=== PATIENT | female | born 1970 | race Caucasian/White ===

== ENCOUNTER 2016-06-14 08:06 | Inpatient (IN) | payer OTHER ==
[~2016-06-14] VITALS: Ht 167.6 cm; Wt 98.1 kg
[2016-06-14 08:06] VITALS: BP 112/47; PULSE 103; RESP 19; TEMP 97.2; O2SAT 99
[2016-06-14] MEDS ORDERED: MORPHINE 4 MG/ML INJ. SYRINGE IVP ONE (08:15)
[2016-06-14] MEDS ORDERED: ONDANSETRON HCL 4 MG/2 ML VIAL IVP ONE (08:15)
[2016-06-14 08:52] LABS: BASOPHILS % (AUTO) 0.5 % (0.0-2.0); EOSINOPHILS # (AUTO) 0.2 K/uL (0.0-0.4); EOSINOPHILS % (AUTO) 3.4 % (0.0-4.0); HEMATOCRIT 32.6 % (36-48); HEMOGLOBIN 11.4 g/dL (12.0-16.0); LYMPHOCYTES # (AUTO) 2.4 K/uL (1.0-5.5); LYMPHOCYTES % (AUTO) 49.1 % (20.5-51.5); MEAN CORPUSCULAR HEMOGLOBIN 32 pg (27-31); MEAN CORPUSCULAR HGB CONC 35 % (32-36); MEAN CORPUSCULAR VOLUME 91 fL (79.0-98.0); MONOCYTES # (AUTO) 0.5 K/uL (0.0-1.0); MONOCYTES % (AUTO) 10.9 % (1.7-9.3); NEUTROPHILS # (AUTO) 1.7 K/uL (1.8-7.7); NEUTROPHILS % (AUTO) 36.1 % (40.0-70.0); PLATELET COUNT (AUTO) 191 K/uL (130-430); RED BLOOD CELL COUNT(AUTO) 3.57 MIL/uL (4.2-6.2); RED CELL DISTRIBUTION WIDTH 13.7 % (9.0-15.0); WHITE BLOOD COUNT (AUTO) 4.8 K/uL (4.8-10.8)
[2016-06-14 08:59] LABS: POTASSIUM 3.9 mmol/L (3.5-5.1)
[2016-06-14 09:00] LABS: CALCIUM 8.2 mg/dL (8.4-11.0); CREATININE 0.72 mg/dL (0.55-1.30)
[2016-06-14 09:02] LABS: INR 0.9 (0.8-1.2); PROTHROMBIN TIME 10.1 SECS (9.5-12.5)
[2016-06-14 09:04] LABS: ALBUMIN 3.6 g/dL (3.4-4.8); TOTAL BILIRUBIN 0.1 mg/dL (0.0-1.0); TOTAL PROTEIN, SERUM 7.5 g/dL (6.4-8.3)
[2016-06-14 09:09] LABS: BARBITURATE, URINE NEGATIVE (NEG <=200); BENZODIAZEPINE, URINE NEGATIVE (NEG <=150); CANNABINOID, URINE NEGATIVE (NEG <=50); COCAINE, URINE NEGATIVE (NEG <=150); METHAMPHETAMINES SCREEN,URINE NEGATIVE (NEG <=500); OPIATE, URINE NEGATIVE (NEG <=100); PHENCYCLIDINE SCREEN,URINE NEGATIVE (NEG <=25); UR TRICYCLIC ANTIDEPRESSANTS NEGATIVE (NEG <=300); URINE AMPHETAMINE NEGATIVE (NEG <=500); URINE METHADONE NEGATIVE (NEG <=200); URINE OXYCODONE SCREEN NEGATIVE (NEG <=100); URINE PROPOXYPHENE SCREEN NEGATIVE (NEG <=300)
[2016-06-14] MEDS ORDERED: PANTOPRAZOLE SODIUM 40 MG/VIAL (PROTONIX) IVP ONE (09:30)
[2016-06-14] MEDS ORDERED: VITD2000 PO (09:42)
[2016-06-14] MEDS ORDERED: LEVO150T8 PO (09:42)
[2016-06-14] MEDS ORDERED: NAPR-227 PO (09:42)
[2016-06-14] MEDS ORDERED: FERR-57 PO (09:42)
[2016-06-14] MEDS ORDERED: MAGNESIUM SULFATE 50 ML IV PRN (10:30)
[2016-06-14] MEDS ORDERED: LORazepam 2 MG/ML VIAL IVP PRN (10:30)
[2016-06-14] MEDS ORDERED: METOCLOPRAMIDE HCL 10 MG/2 ML VIAL IVP ONE (11:15)
[2016-06-14] MEDS ORDERED: METOCLOPRAMIDE HCL 10 MG/2 ML VIAL ONE (11:28)
[2016-06-14] MEDS ORDERED: MIDAZOLAM HCL 5 MG/5 ML VIAL ONE ×2 (11:36→11:37)
[2016-06-14] MEDS ORDERED: MEPERIDINE HCL/PF 100 MG/ML AMP ONE ×2 (11:37→11:38)
[2016-06-14 12:00] VITALS: BP 117/76; PULSE 77; RESP 16; TEMP 97.2; O2SAT 97
[2016-06-14 12:01] LABS: HCG,QUAL RESULT NEGATIVE (NEGATIVE)
[2016-06-14] MEDS: MORPHINE 2 MG/ML INJ. SYRINGE IVP PRN ×3 (12:47→21:07)
[2016-06-14] MEDS: D5NS 1,000 ML IV SCH ×2 (12:50→20:00)
[2016-06-14] MEDS: METOCLOPRAMIDE HCL 10 MG/2 ML VIAL IVP SCH ×2 (14:00→21:06)
[2016-06-14 16:00] VITALS: BP 121/73; PULSE 69; RESP 16; TEMP 97.3; O2SAT 97
[2016-06-14] MEDS: ONDANSETRON HCL 4 MG/2 ML VIAL IVP PRN (19:38)
[2016-06-14 19:57] VITALS: BP 133/87; PULSE 81; RESP 17; TEMP 99.1; O2SAT 98
[2016-06-14] MEDS: ZOLPIDEM TARTRATE 5 MG TABLET PO PRN (23:22)
[2016-06-15 00:59] VITALS: BP 110/68; PULSE 69; RESP 20; TEMP 97.8; O2SAT 97
[2016-06-15 04:00] VITALS: BP 116/62; PULSE 68; RESP 18; TEMP 97.3; O2SAT 96
[2016-06-15] MEDS: D5NS 1,000 ML IV SCH ×2 (06:00→18:19)
[2016-06-15] MEDS: METOCLOPRAMIDE HCL 10 MG/2 ML VIAL IVP SCH ×3 (06:47→21:33)
[2016-06-15 07:03] LABS: CREATININE 0.67 mg/dL (0.55-1.30); POTASSIUM 3.5 mmol/L (3.5-5.1)
[2016-06-15 07:13] LABS: TOTAL BILIRUBIN 0.4 mg/dL (0.0-1.0); TOTAL PROTEIN, SERUM 6.5 g/dL (6.4-8.3)
[2016-06-15 07:50] VITALS: BP 108/70; PULSE 69; RESP 16; TEMP 97; O2SAT 99
[2016-06-15 08:29] LABS: BASOPHILS % (AUTO) 0.4 % (0.0-2.0); EOSINOPHILS # (AUTO) 0.2 K/uL (0.0-0.4); HEMOGLOBIN 11.1 g/dL (12.0-16.0); LYMPHOCYTES # (AUTO) 1.5 K/uL (1.0-5.5); LYMPHOCYTES % (AUTO) 28.8 % (20.5-51.5); MEAN CORPUSCULAR HEMOGLOBIN 31 pg (27-31); MEAN CORPUSCULAR HGB CONC 34 % (32-36); MONOCYTES # (AUTO) 0.4 K/uL (0.0-1.0); MONOCYTES % (AUTO) 8.6 % (1.7-9.3); NEUTROPHILS # (AUTO) 3.1 K/uL (1.8-7.7); NEUTROPHILS % (AUTO) 59.2 % (40.0-70.0); PLATELET COUNT (AUTO) 174 K/uL (130-430); RED BLOOD CELL COUNT(AUTO) 3.56 MIL/uL (4.2-6.2); RED CELL DISTRIBUTION WIDTH 13.9 % (9.0-15.0); WHITE BLOOD COUNT (AUTO) 5.2 K/uL (4.8-10.8)
[2016-06-15] MEDS: MORPHINE 2 MG/ML INJ. SYRINGE IVP PRN ×3 (08:39→18:18)
[2016-06-15] MEDS: PANTOPRAZOLE SODIUM 40 MG/VIAL (PROTONIX) IVP SCH (08:40)
[2016-06-15 08:46] LABS: MEAN CORPUSCULAR VOLUME 93 fL (79.0-98.0)
[2016-06-15] MEDS: ONDANSETRON HCL 4 MG/2 ML VIAL IVP PRN (11:27)
[2016-06-15 12:00] VITALS: BP 108/58; PULSE 70; RESP 22; TEMP 99; O2SAT 95
[2016-06-15 16:00] VITALS: BP 96/56; PULSE 76; RESP 21; TEMP 99.6; O2SAT 97
[2016-06-15 19:05] VITALS: BP 107/63; PULSE 69; RESP 20; TEMP 99; O2SAT 98
[2016-06-15] MEDS: AMITRIPTYLINE HCL 10 MG TABLET (ELAVIL) PO SCH (21:33)
[2016-06-15] MEDS: ZOLPIDEM TARTRATE 5 MG TABLET PO PRN (21:33)
[2016-06-16] VITALS: BP 110/68; PULSE 70; RESP 18; TEMP 98.9; O2SAT 93
[2016-06-16] MEDS: D5NS 1,000 ML IV SCH ×2 (01:24→11:27)
[2016-06-16] MEDS: MORPHINE 2 MG/ML INJ. SYRINGE IVP PRN ×2 (01:25→09:16)
[2016-06-16 04:00] VITALS: BP 94/52; PULSE 72; RESP 17; TEMP 97; O2SAT 95
[2016-06-16] MEDS: METOCLOPRAMIDE HCL 10 MG/2 ML VIAL IVP SCH (05:33)
[2016-06-16 06:48] LABS: BASOPHILS % (AUTO) 0.5 % (0.0-2.0); EOSINOPHILS # (AUTO) 0.1 K/uL (0.0-0.4); EOSINOPHILS % (AUTO) 3.1 % (0.0-4.0); HEMATOCRIT 31.8 % (36-48); HEMOGLOBIN 10.6 g/dL (12.0-16.0); LYMPHOCYTES # (AUTO) 1.9 K/uL (1.0-5.5); LYMPHOCYTES % (AUTO) 43.5 % (20.5-51.5); MEAN CORPUSCULAR HEMOGLOBIN 31 pg (27-31); MEAN CORPUSCULAR HGB CONC 34 % (32-36); MEAN CORPUSCULAR VOLUME 93 fL (79.0-98.0); MONOCYTES # (AUTO) 0.5 K/uL (0.0-1.0); NEUTROPHILS # (AUTO) 1.9 K/uL (1.8-7.7); NEUTROPHILS % (AUTO) 41.9 % (40.0-70.0); PLATELET COUNT (AUTO) 168 K/uL (130-430); RED BLOOD CELL COUNT(AUTO) 3.42 MIL/uL (4.2-6.2); RED CELL DISTRIBUTION WIDTH 13.7 % (9.0-15.0); WHITE BLOOD COUNT (AUTO) 4.4 K/uL (4.8-10.8)
[2016-06-16 07:18] LABS: CALCIUM 7.7 mg/dL (8.4-11.0); CREATININE 0.61 mg/dL (0.55-1.30); POTASSIUM 3.4 mmol/L (3.5-5.1)
[2016-06-16 08:00] VITALS: BP 104/56; PULSE 78; RESP 17; TEMP 98; O2SAT 98
[2016-06-16] MEDS: PANTOPRAZOLE SODIUM 40 MG/VIAL (PROTONIX) IVP SCH (09:16)
[2016-06-16] MEDS: AMITRIPTYLINE HCL 10 MG TABLET (ELAVIL) PO SCH (09:16)
[2016-06-16] MEDS ORDERED: PRO40 PO (11:23)
[2016-06-16 12:13] VITALS: BP 94/47; PULSE 62; RESP 16; TEMP 98; O2SAT 97
[2016-06-16 13:47] VITALS: BP 98/56; PULSE 62; RESP 18; TEMP 98; O2SAT 97
== END 2016-06-16 14:30 | disposition home or self-care (01) | DRG 241 ==
LOC: SED 08:06 → SMU 09:58
PROVIDERS: ADMIT General Practice; ATTEND General Practice
PROC: 0DB98ZX Excision of Duodenum, Via Natural or Artificial Opening Endoscopic, Diagnostic (ICD-10-PCS; 2016-06-14)
PROC: 0DB78ZX Excision of Stomach, Pylorus, Via Natural or Artificial Opening Endoscopic, Diagnostic (ICD-10-PCS; principal; 2016-06-14 11:30)
DX: K29.71 Gastritis, unspecified, with bleeding (principal); E44.0 Moderate protein-calorie malnutrition; E03.9 Hypothyroidism, unspecified; K29.81 Duodenitis with bleeding; M47.9 Spondylosis, unspecified; E87.6 Hypokalemia; D64.9 Anemia, unspecified; Z68.34 Body mass index [BMI] 34.0-34.9, adult
CPT/HCPCS: 36415; 43239; 71010; 76700-TC; 80048; 80053; 80307; 81025; 82150-TC; 83690-TC; 83735-TC; 84703; 85025; 85610-TC; 85730-TC; 87081; 88305; 88312; 88313; 93005; 96374; 96375; 99285; C9113; G0482; J2175; J2250; J2270; J2405; J2765; J7042